=== PATIENT | female | born 1975 | race Two or more races ===

== ENCOUNTER → 2017-06-20 | Outpatient (CLI) | payer OTHER ==
[2017-06-20 12:01] LABS: BASO % 1 % (0-3); EOS % 7 % (0-3); HEMATOCRIT 42.1 % (36.0-47.0); HEMOGLOBIN 14.2 g/dL (12.0-15.5); LYMPH # 1.9 x10^3/uL (1.0-4.8); LYMPH % 29 % (24-48); MEAN CORPUSCULAR HEMOGLOBIN 29 pg (25-35); MEAN CORPUSCULAR HGB CONC 34 g/dL (31-37); MEAN CORPUSCULAR VOLUME 86 fL (79-100); MONO % 8 % (0-9); NEUT % 56 % (31-73); PLATELET COUNT 192 x10^3/uL (140-400); RED BLOOD COUNT 4.91 x10^6/uL (3.50-5.40); WHITE BLOOD COUNT 6.4 x10^3/uL (4.0-11.0)
[2017-06-20 12:11] LABS: ALBUMIN 3.7 g/dL (3.4-5.0); ALBUMIN/GLOBULIN RATIO 0.9 (1.0-1.7); CALCIUM 8.6 mg/dL (8.5-10.1); CREATININE 0.8 mg/dL (0.6-1.0); GFR 78.7; POTASSIUM 3.4 mmol/L (3.5-5.1); TOTAL BILIRUBIN 0.9 mg/dL (0.2-1.0); TOTAL PROTEIN 7.8 g/dL (6.4-8.2)
--- NOTE | 2017-06-20 15:23 | RAD ---
Acute abdomen series Indication: Abdominal pain/distention Technique: An acute abdomen series Comparison: Previous CT abdomen/pelvis from 10/27/2016 Findings: Heart is normal in size. Lungs are clear. No free intraperitoneal air. No abnormally dilated bowel loops. Moderate amount of stool within proximal colon The contours of solid abdominal organs are within normal limits. No calcific densities projecting over the kidneys. No osseous abnormalities. Impression: No bowel obstruction.
== END | disposition home or self-care (01) ==
LOC: US 10:53
PROVIDERS: ATTEND Surgery
DX: R10.0 Acute abdomen (principal); R14.0 Abdominal distension (gaseous); R51 Headache
CPT/HCPCS: 36415; 74022; 80053; 85025